=== PATIENT | male | born 2005 | race Two or more races ===

== ENCOUNTER 2024-12-23 17:20 | Emergency (ER) | payer MEDICAID, SELFPAY ==
[2024-12-23 17:26] VITALS: BP 136/80; PULSE 100; RESP 18; TEMP 36.9; O2SAT 96
--- NOTE | 2024-12-23 17:37 | XR_ITS ---
Examination: Shoulder, right, 3 views Technique: Shoulder AP internal rotation, AP external rotation, Y view shoulder, 3 views Exam date and time : December 23, 2024, 1751 hours INDICATIONS: Injured the shoulder 2 days ago, shoulder pain. FINDINGS: No shoulder fracture or dislocation No AC joint separation IMPRESSION: No shoulder fracture or dislocation
--- NOTE | 2024-12-23 17:37 | XR_ITS ---
Examination: Clavicle 2 views, right Technique: Clavicle AP, angled up AP, 2 views Exam date and time: December 23, 2024, 1741 hours INDICATIONS: Injury to the shoulder 2 days ago, shoulder pain. FINDINGS: Intact clavicle, no AC joint separation IMPRESSION: No clavicle fracture
--- NOTE | 2024-12-23 17:38 | EDNOTE_ITS ---
Upper Extremity Injury RME/HPI General Chief Complaint: Extremity Injury, Upper Stated Complaint: R SHOULDER INJURY X2 DAYS AGO Time Seen by Provider: 12/23/24 17:37 Arrival date/time: 12/23/24 17:20 RME / HPI RME / HPI narrative: Healthy 19-year-old male presents to the ER complaining of right shoulder pain after boxing and being hit on the arm he subsequently states that he fell to the ground and was trying to get up but felt like his arm was out of place and it has been that way for the past 2 days. Denies any numbness or weakness or chest pain or shortness of breath. Related Data Previous Rx's ?Medication ?Instructions ?Recorded ibuprofen 400 mg tablet 400 mg PO QID PRN fever or p ain 05/13/18 #30 tabs naproxen 500 mg tablet 500 mg PO BID PRN pain #14 t abs 12/23/24 Allergies Allergy/AdvReac Type Severity Reaction Status Date / Time No Known Allergies Allergy Verified 12/23/24 17:21 ED Exam Narrative Physical exam: Constitutional: Patient alert, oriented, in no acute distress. Head/Face: Normocephalic, atraumatic. Scalp atraumatic. No hematomas or step- offs. Face symmetric. No raccoon eyes bilaterally. No martinez signs bilaterally. Eyes: Conjunctiva clear bilaterally. Sclera anicteric bilaterally. Pupils equal , round, and reactive to light bilaterally. Extraocular movements intact bilaterally. Mouth/Throat: Moist mucous membranes. No stridor or muffled voice. No trismus. Handling secretions without difficulty. Airway widely patent. Neck: Trachea midline. Supple. No JVD. No midline tenderness or step-offs. No nuchal rigidity. Chest: Symmetric chest rise. Breath sounds equal bilaterally. No tenderness, deformity, or crepitus. Positive tenderness to palpation to right clavicle. Cardiovascular: RRR. Normal S1/S2. No murmurs or rubs. Radial pulses intact bilaterally. Abdomen: Soft. Non-distended. Non-tender throughout. No pulsatile mass. No rebound or guarding. Pelvis: Stable and non-tender to compression. No deformity. Back: No CVA tenderness bilaterally. No midline spinal tenderness. No step- offs. Upper Extremities: No gross deformities. No focal motor or sensory deficits bilaterally. Right shoulder: Positive tenderness to palpation, mild ecchymosis, edema noted to right deltoid. Full range of motion and strength 5 out of 5 for right shoulder however patient does note some increased pain with cross arm test. Radial pulse 2+ earlier and rhythm for upper extremities bilaterally. Lower Extremities: No gross deformities. No focal motor or sensory deficits bilaterally. Neuro: Alert and oriented. Speech normal. CN II?XII grossly intact. GCS 15. Skin: Warm, dry, normal color. Course Course Course Narrative: MDM: Concern for soft tissue injury resulting in a contusion of right deltoid and cannot exclude an AC versus other shoulder sprain versus strain versus occult fracture or dislocation No infectious etiology and low suspicion for septic arthritis given lack of circumferential erythema, heat, irritable joint- as patient has a fairly good mid range motion but is painless Right upper extremity remains distally neurovascular intact with soft compartments X-ray without gross fracture or bony malalignment for shoulder and clavicle Plan for RICE therapy, sling with Codman's exercises 20 minutes time twice daily, pain and nausea management as needed f/u with pmd and ortho in 1-2 days, strict ER return precautions, sling precautions advised to avoid frozen shoulder Quality Measures none Orders Category Date Time Status XR chest 1V portable Stat Exams 12/23/24 20:36 Completed XR clavicle RT Stat Exams 12/23/24 17:37 Completed XR shoulder RT min 2V Stat Exams 12/23/24 17:37 Completed Ketorolac Inj [Toradol Inj] Med 12/23/24 17:38 Discontinued 30 mg IM X1 ONE Reevaluation(s) Reevaluation #1: At the time of reassessment, the patient remains alert and oriented ?3 with GCS 15. Vitals are normal, pain is controlled, and the patient is tolerating oral intake without nausea or vomiting. The patient is agreeable to discharge and verbalizes understanding of the diagnosis, studies, treatment plan, medications (including side effects/precautions), and strict ER return precautions as discussed in the ED. All concerns were addressed, and the patient is comfortable with the plan. Vital Signs Vital signs: Vital Signs Temperature 98.5 F 12/23/24 17:26 Pulse Rate 100 12/23/24 17:26 Respiratory Rate 18 12/23/24 17:26 Blood Pressure 136/80 H 12/23/24 17:26 Pulse Oximetry (%) 96 12/23/24 17:26 Oxygen Delivery Method Room Air 12/23/24 17:26 Extremity Injury MDM Narrative MDM Narrative:: MDM: Concern for AC vs shoulder sprain versus strain versus occult fracture or dislocation No infectious etiology and low suspicion for septic arthritis given lack of circumferential erythema, heat, irritable joint as patient has a fairly good mid range motion but is painless Extremity remains distally neurovascular intact with soft compartments X-ray without gross fracture or bony malalignment Plan for RICE therapy, sling with codmanns exercises, pain and nausea management as needed f/u with pmd and ortho in 1-2 days, strict ER return precautions Patient data External records reviewed:: [facility] previous records Clinical information provided by:: patient Social determinants that could affect healthcare access:: none Patient has the following chronic illnesses:: As noted How is presenting disease/condition affected by chronic disease/condition?: uneffected by Evaluation data The following diagnostics were reviewed and interpreted by me:: other (specify) Lab and/or radiology exams considered but not ordered:: Additional Labs and radiology considered, but not ordered as they were not clinically indicated at this time. Interpretation Summary: As noted Medications / Prescriptions Medications or Prescriptions considered but not ordered:: I considered prescription management (both outpatient prescriptions AND drug treatment in the ER) and decided that this was necessary and was prescribed as charted. Medication administrations:: Medication Administration History Discontinued Medications Ketorolac Tromethamine (Ketorolac Inj 30 Mg/Ml Vial) 30 mg IM X1 ONE Stop: 12/23/24 17:39 Last Admin: 12/23/24 18:04 Dose: 30 mg Documented By: OA As noted Consultations Consultation(s) initiated? (list below): No Diagnosis Upper Extremity Injury Differential Diagnosis: dislocation of shoulder and other Most likely diagnosis given after review of the tests above:: Contusion Admission Indicated Admission indicated?: not indicated Admission Request Was there a request for admission?: No Disposition Plan Disposition Plan: Discharge Discharge Attestation Discharge Attestation: The patient and all family members were given an opportunity to ask questions and understood the discharge instructions. Discharge instructions specifically effects, indications for sooner follow up or return to the emergency department, and the expected course of current diagnosis. Patient condition: Stable Discharge Plan Plan Patient Disposition: HOME (Self Care) Patient condition on transfer: Stable Prescriptions/Referrals Prescriptions/Med Rec: New naproxen 500 mg tablet 500 mg PO BID PRN (Reason: pain) Qty: 14 0RF Rx Instructions: take wtih food and 8 oz of water No Action ibuprofen 400 mg tablet 400 mg PO QID PRN (Reason: fever or pain) Qty: 30 0RF Referrals: No Primary/Family,Physician [Primary Care Provider] - In 1 week Problem List Clinical Impression: Muscle strain of right shoulder, Contusion Patient/Caregiver Discharge Instructions Education Materials: Self-Care for Strains and Sprains, Contusion Bone Tx, ED Muscle Strain, Extremity Additional Instructions: Follow up with your primary medical doctor and orthopedic doctor within 24 hours. Return to the Emergency Room immediately for any new, worsening, continuing symptoms or any concerns at all. Return to the Emergency Room within 24 hours if you are unable to follow up with your primary medical doctor and an orthopedic doctor within 24 hours. Perform codmann's exercises 20 minutes a time twice daily. Print Language: Prydeinig Stand Alone Forms: Francesca Award Info., Patient Portal Info Letter PA/AUGER PRESS OPERATOR Supervising Physician PA/AUGER PRESS OPERATOR Supervising Physician: Dr. Garcia
[2024-12-23] MEDS: KETOROLAC INJ 30 MG/ML VIAL IM (18:04)
--- NOTE | 2024-12-23 20:36 | XR_ITS ---
EXAMINATION: PA chest single view TECHNIQUE: Upright PA chest single view Date and time: December 23, 2024, 2046 hours INDICATIONS: Injury to the chest today, chest pain FINDINGS: Normal heart size No pneumothorax Clavicles ribs appear intact IMPRESSION: No pneumothorax pulmonary contusion or hemothorax
[2024-12-23 21:43] VITALS: RESP 16
== END 2024-12-23 21:44 | disposition home or self-care (01) ==
PROVIDERS: Emergency Provider Family Medicine
DX: S40.011A Contusion of right shoulder, initial encounter (principal); S46.911A Strain of unspecified muscle, fascia and tendon at shoulder and upper arm level, right arm, initial encounter; W19.XXXA Unspecified fall, initial encounter; Y93.71 Activity, boxing
CPT/HCPCS: 71045; 73000; 73030; 96372; 99283; J1885